=== PATIENT | male | born 1960 | race Caucasian/White ===

== ENCOUNTER 2024-04-02 16:35 | Outpatient (CLI) | payer OTHER, SELFPAY ==
[2024-04-02 17:14] LABS: Hemoglobin 13.2 g/dL (14.0-18.0)
== END 2024-04-02 16:36 | disposition home or self-care (01) ==
LOC: ANHLAB 16:43
PROVIDERS: PCP Family Medicine; Visit Provider Nurse Practitioner
DX: E29.1 Testicular hypofunction (principal)
CPT/HCPCS: 36415; 82670; 85014; 85018